=== PATIENT | female | born 1970 | race Caucasian/White ===

== ENCOUNTER → 2024-06-14 | Outpatient (CLI) | payer BC ==
--- NOTE | 2024-06-14 10:50 | CA ---
Stress Echo Report Suzanna Quiroz Age: 53 Gender: F : 1970 Exam Date: 06/14/2024 09:36 Exam Location: [facility] Ht (in): 66 Wt (lb): 150 Ordering Physician: eNil Perez DO Referring Physician: Sophy Santiago [facility] Retinal Angiographer: Marcie Mccarthy RDCS Technologist Procedure CPT: Indication: R79.82 ELEVATED C-REACTIVE PROTEIN (CRP) ICD-9 Codes: Rhythm: Patient History: Cardiac Medications: Medications in past 24 hours: Contrast: N/A Stress Results Protocol: Fidel Total dose(mL): NA Exercise Duration (min:sec): 9:[address] Depression (mm): Angina Score: Christopher Score: METS: 10.3 Resting HR: 68 Resting BP: 138 / 79 Peak HR: 167 Peak BP: 162 / 73 Max Predicted HR: 167 100 % Max Predicted HR Target HR: 142 Double Product: [id number] Stress Summary: BP Response: Reason for Termination: Reached target heart rate or work-load Cardiac Symptoms: NO SYMPTOMS ECG Analysis Resting ECG: Stress ECG: Arrhythmia: Echo Analysis Resting Echo: Peak Echo Analysis: MEASUREMENTS (Male/Female) Normal Values CONCLUSIONS Patient underwent exercise stress echo with a Fidel protocol treadmill stress test. Patient exercised into Stage 3 for a total of 9 minutes reaching a total of 10.3 METS. Patient's maximum heart rate was 167 which represented 100% age-predicted maximum heart rate. Stress EKG portion: At baseline patient's EKG showed normal sinus rhythm, normal axis, no significant ST or T wave abnormalities. At peak exercise, EKG showed no significant change from baseline. Stress echo portion: 2-D echocardiogram was performed in the parasternal long, personal short, apical 2 and apical four-chamber views at rest, peak exercise and in recovery. At baseline, echocardiogram showed left ventricular ejection fraction 55% without wall motion abnormalities. With peak exercise, echocardiogram shows improvement in left ventricular ejection fraction, increase contractility, decrease in left ventricular end systolic dimension without wall motion abnormalities consistent with a normal response to exercise. Conclusions: 1. Normal EKG and echo response to exercise without evidence of inducible ischemia. 2. Good exercise capacity. Dr. Rambo Borja DO (Electronically Signed) Final Date: 14 June 2024 10:49
== END | disposition home or self-care (01) ==
LOC: RADNMMAIN 08:57
PROVIDERS: ATTEND Family Medicine
DX: R79.82 Elevated C-reactive protein (CRP) (principal)
CPT/HCPCS: 93351

== ENCOUNTER → 2024-12-30 | Outpatient (CLI) | payer BC ==
[2024-12-30 13:23] LABS: DHEA Sulfate 97.6 UG/DL (39.0-800.0); Insulin Level 9.2 mIU/mL (3.0-25.0)
[2024-12-30 13:56] LABS: ALT 34 U/L (8-44); AST 24 U/L (13-35); Albumin 4.3 g/dL (3.8-4.9); Albumin/Globulin Ratio 1.48 Ratio (1.60-3.17); Alkaline Phosphatase 55 U/L (41-126); BUN/Creat Ratio 15.62 Ratio (12.00-20.00); Blood Urea Nitrogen 12.5 mg/dL (9.0-27.0); Calcium 9.5 mg/dL (8.7-10.3); Carbon Dioxide 23.3 mmol/L (21.6-31.8); Chloride 102 mmol/L (96-109); Chol/HDL Ratio 4.05 Ratio; Globulin 2.9 g/dL (1.6-3.3); Glucose 97 mg/dL (70-110); LDL Cholesterol,Calculated 151.6 mg/dL (0.0-131.0); Potassium 4.8 mmol/L (3.5-5.5); Sodium 136 mmol/L (135-145); T4, Free (Free Thyroxine) 1.25 ng/dL (0.80-1.80); Total Bilirubin 0.4 mg/dL (0.3-1.2); Total Protein 7.2 g/dL (6.2-8.2)
[2024-12-30 14:05] LABS: Estradiol <20.0 pg/mL
[2024-12-30 14:48] LABS: Follicle Stimulating Hormone 5.1 mIU/mL
[2024-12-30 14:50] LABS: Progesterone 0.3 ng/mL
== END | disposition home or self-care (01) ==
LOC: LABWHC1 08:25
PROVIDERS: ATTEND Nurse Practitioner Family
DX: N95.1 Menopausal and female climacteric states (principal)
CPT/HCPCS: 36415; 80053; 80061; 82306; 82533; 82627; 82670; 83001; 83036; 83525; 84140; 84144; 84403; 84439; 84443; 84481